=== PATIENT | male | born 1960 | race Caucasian/White ===

== ENCOUNTER 2021-03-17 19:18 | Inpatient (IN) | payer OTHER, MEDICARE ==
[2021-03-17] VITALS (7 sets, daily range): BP systolic 136–167; BP diastolic 82–98
[~2021-03-17] VITALS: Ht 180.3 cm; Wt 96.6 kg
[~2021-03-17 19:18] MED LIST: ALBU8.5H7 IH; GABA600T7 PO; HYDR12.58 PO; INSU100V8 SQ; LOSA50TA14 PO; Levofloxacin PO; METF10007 PO; PANT40TA6 PO; ROPI0.5T4 PO; SERT25TA PO; SITA50TA PO
--- NOTE | 2021-03-17 19:18 | NUR ---
Patient arrived to ED via ems with chief complaint of difficulty breathing x 1 week. Patient is a&o x3, no acute distress noted. Patient received DuoNeb treatment, solumedrol 125mg and 200cc of NS during EMS transport. Patient verbalized history of Asthma, COPD, allergic to mold. 18 g peripheral IV to left AC running NS started by EMS. NC at 4 liters. Patient connected to radiation monitor. Will continue to monitor patient.
[2021-03-17 19:37] LABS: BASOPHIL # 0.1 10^3/uL (0.0-0.1); BASOPHIL % 1.2 % (0.0-0.2); EOSINOPHIL # 0.9 10^3/uL (0.0-0.2); EOSINOPHIL % 12.3 % (0.0-5.0); LYMPHOCYTES % 30.8 % (24.0-44.0); MEAN CORP HGB 29.8 pg (26-34); MONOCYTES # 0.6 10^3/uL (0.3-0.8); MONOCYTES % 8.2 % (5.0-12.0); NEUTROPHIL # 3.5 10^3/uL (1.8-7.7); NEUTROPHILS % 47.4 % (41.0-85.0); PLATELET COUNT 228 10^3/uL (150-400); RED CELL DISTRIBUTION WIDTH 14.8 % (11.5-14.5)
--- NOTE | 2021-03-17 19:38 | ER.PDOC ---
General Chief Complaint: Requesting Medical Care Stated Complaint: DIFFICULTY BREATHING Time seen by MD: 19:36 Source: patient Exam Limitations: no limitations History of Present Illness Initial Comments Difficulty breathing for 1 week. Patient called EMS who gave him a breathing treatment of Xopenex and albuterol. He also has Solu-Medrol 110 times grams IV. Timing/Duration: 1 week Severity: moderate Prior Episodes/Possible Cause: occasional episodes, chronic episodes Modifying Factors: improves with albuterol nebulizer Associated Symptoms: cough Prior symptoms/Treatment: Similar symptoms previous, Recenly Seen, Treated by Doctor, Recently Hospitalized Allergies: Coded Allergies: No Known Allergies (Unverified , 06/02/20) Home Meds Active Scripts [Levofloxacin] 500 MG TABLET No Conflict Check, 500 MG PO DAILY for 5 Days, #5 Prov:BRUNA MACEDO MD 06/06/20 Reported Medications Albuterol Sulfate (PROAIR HFA) 8.5 Gm Hfa.aer.ad, 8.5 GM IH daily , INHALATION 06/01/20 Insulin Glargine,Hum.rec.anlog (LANTUS) 100 Unit/1 Ml Vial, 10 UNIT SQ HS, VIAL 06/01/20 Sertraline Hcl (ZOLOFT) 25 Mg Tablet, 1 TAB PO DAILY, #30 TAB 2 Refills 06/01/20 Hydrochlorothiazide (HYDROCHLOROTHIAZIDE) 12.5 Mg Tablet, 1 TAB PO DAILY, #30 TAB 5 Refills 06/01/20 Sitagliptin Phosphate (JANUVIA) 50 Mg Tablet, 100 MG PO Daily 06/01/20 Pantoprazole Sodium (PANTOPRAZOLE SODIUM) 40 Mg Tablet.dr, 1 TAB PO DAILY, #30 TAB 3 Refills 06/01/20 Gabapentin (GABAPENTIN) 600 Mg Tablet, 1 TAB PO TID, #90 TAB 3 Refills 06/01/20 Ropinirole Hcl (ROPINIROLE HCL) 0.5 Mg Tablet, 0.5 MG PO HS, TAB 06/01/20 Losartan Potassium (LOSARTAN POTASSIUM) 50 Mg Tablet, 1 TAB PO DAILY, #30 TAB 5 Refills 06/01/20 Metformin Hcl (METFORMIN HCL) 1,000 Mg Tablet, 1000 MG PO BID 06/01/20 Past Medical History Medical History: asthma, COPD, diabetes, hypertension Family History Significant Family History: no pertinent family hx Social History Alcohol Use: none Drug Use: none Review of Systems Constitutional: no symptoms reported EENTM: no symptoms reported Respiratory: see HPI Cardiovascular: no symptoms reported Gastrointestinal: no symptoms reported Genitourinary: no symptoms reported All Other Systems: Reviewed and Negative Physical Exam General Appearance: No Apparent Distress, WD/WN Neck: Non-Tender, Full Range of Motion, Supple, Normal Inspection Respiratory: chest non-tender, no respiratory distress, no accessory muscle use, wheezing Cardiovascular: Normal Peripheral Pulses, Regular Rate, Rhythm, No Edema, No Gallop, No JVD, No Murmur Gastrointestinal: Normal Bowel Sounds, No Organomegaly, No Pulsatile Mass, Non Tender, Soft Extremities: Normal Range of Motion, Non-Tender, Normal Inspection, No Pedal Edema, No Calf Tenderness, Normal Capillary Refill 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 (03/17/21 19:30) Ekg-Routine (03/17/21 19:30) Xr Chest 1v (03/17/21 19:30) Covid19 Antigen Meghan Yadira (03/17/21 19:30) Vital Signs Date Time Temp Pulse Resp B/P (MAP) Pulse Ox O2 Delivery O2 Flow Rate FiO2 03/17/21 19:45 97.8 69 19 144/98 (113) 89 Room Air 03/17/21 19:18 97.4 73 19 97 03/17/21 19:18 97.4 73 19 167/88 (114) 97 Nasal Canula 03/17/21 19:18 97.4 73 19 Laboratory Tests Test 03/17/21 19:21 03/17/21 19:40 White Blood Count 7.5 10^3/uL (4.5-11.0) Red Blood Count 5.40 10^6/uL (4.50-5.90) Hemoglobin 16.1 g/dL (13.9-16.3) Hematocrit 47.7 % (37.0-53.0) Mean Corpuscular Volume 88.3 fL (78-100) Mean Corpuscular Hemoglobin 29.8 pg (26-34) Mean Corpuscular Hemoglobin Concent 33.8 g/dL (33-36.5) Red Cell Distribution Width 14.8 % (11.5-14.5) H Platelet Count 228 10^3/uL (150-400) Mean Platelet Volume 11.7 fL (7.8-11.0) H Neutrophils (%) (Auto) 47.4 % (41.0-85.0) Lymphocytes (%) (Auto) 30.8 % (24.0-44.0) Monocytes (%) (Auto) 8.2 % (5.0-12.0) Neutrophils # (Auto) 3.5 10^3/uL (1.8-7.7) Lymphocytes # (Auto) 2.30 10^3/uL1 (1.0-4.8) Monocytes # (Auto) 0.6 10^3/uL (0.3-0.8) Absolute Immature Granulocyte (auto 0.01 10^3 u/L (0-2) Absolute Eosinophils (auto) 0.9 10^3/uL (0.0-0.2) H Immature Granulocytes % 0.10 % (0.00-0.50) Eosinophils % 12.3 % (0.0-5.0) H Basophils % 1.2 % (0.0-0.2) H Basophils # 0.1 10^3/uL (0.0-0.1) Prothrombin Time 11.9 SEC (9.6-12.0) Prothrombin Time INR (Non-Therap) 1.1 Activated Partial Thromboplast Time 21.2 SEC (24.67-30.72) D-Dimer 0.36 mg/L (0.19-0.49) Sodium Level 141 mmol/L (132-145) Potassium Level 4.2 mmol/L (3.6-5.2) Chloride Level 107.0 mmol/L (96-109) Carbon Dioxide Level 23.7 mmol/L (20.0-32) Anion Gap 14.5 Blood Urea Nitrogen 15 mg/dL (7-18) Creatinine 0.83 mg/dL (0.59-1.40) Estimated GFR () 114.0 (>/=60) Est GFR (CKD-EPI)(Non-Afr Surinamese) 94.2 (>/=60) BUN/Creatinine Ratio 18.0 Glucose Level 206 mg/dL (70-110) H Calcium Level 8.7 mg/dL (8.4-10.5) Total Bilirubin 1.9 mg/dL (0.2-1.0) H Aspartate Amino Transferase (AST) 12 U/L (0-35) Alanine Aminotransferase (ALT) 32 U/L (12-78) Alkaline Phosphatase 66 U/L (50-136) Total Creatine Kinase 139 U/L (39-308) Creatine Kinase MB 2.2 ng/mL (0.5-3.6) Troponin I < 0.02 ng/mL (0.00-0.05) Pro-B-Type Natriuretic Peptide 76 pg/mL (0-125) Total Protein 6.5 g/dL (6.4-8.2) Albumin 3.8 g/dL (3.4-5.0) Globulin 2.7 Albumin/Globulin Ratio 1.407 EKG/XRAY/CT/US EKG: NSR, no ST T wave changes EKG Comments: HR 71, normal P axis XRAY: chest (No active disease) ER DEPART Departure Time of Disposition: 20:49 Disposition: 01 HOME / SELF CARE / HOMELESS Impression: Primary Impression: Respiratory failure, acute Additional Impressions: COPD exacerbation Shortness of breath Condition: Stable Referrals: PCP,UNKNOWN (PCP) PRIMARY CARE PROVIDER Comments Admitted to Dr. Calloway Duration or Time Spent with Pa: 60 min Critical Care Note Total Time (mins): 60 Problem Qualifiers Primary Impression: Respiratory failure, acute Respiratory failure complication: hypoxia Qualified Codes: J96.01 - Acute respiratory failure with hypoxia ELI DELCID MD Mar 17, 2021 19:37
--- NOTE | 2021-03-17 19:51 | DIREP ---
PROCEDURE:CHEST 1 VIEW COMPARISON:[facility], CR, XRAY CHEST SINGLE VW, 05/31/2020, 11:06 PM. INDICATIONS:Dyspnea FINDINGS: LUNGS/PLEURA:No significant pulmonary parenchymal abnormalities or pleural effusion. CARDIAC:Normal cardiac silhouette and normal pulmonary vascularity. Aortic arch calcifications. MEDIASTINUM:Normal. BONES:Normal. OTHER:No additional findings. CONCLUSION:No acute cardiopulmonary process or significant change. Dictated by: Dai Mitchell MD on 03/17/2021 at 07:49 PM
--- NOTE | 2021-03-17 19:52 | PCM.EKG ---
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
[2021-03-17 20:13] LABS: CARBON DIOXIDE 23.7 mmol/L (20.0-32); GLUCOSE 206 mg/dL (70-110)
[2021-03-17 20:14] LABS: ALANINE AMINOTRANSFERASE(ML) 32 U/L (12-78); ALKALINE PHOSPHATASE 66 U/L (50-136); ASPARTATE AMINO TRANSFERASE 12 U/L (0-35); CALCIUM 8.7 mg/dL (8.4-10.5)
--- NOTE | 2021-03-17 20:15 | NUR ---
Patient placed on NC at 2 liters at this time, followed verbal order by Dr. Clifton. Oxygen at 93% with NC at 2 liters
--- NOTE | 2021-03-17 20:18 | NUR ---
BP 152/[address] Clifton, aware no orders recieved
[2021-03-17] MEDS ORDERED: ZITHROMAX 500 MG in NS 250ML 250 ML IV STA (20:28)
[2021-03-17 20:55] LABS: ABG PCO2 32.6 mmHg (35.0-45.0); ABG PH 7.436 (7.350-7.450); BE(B) -1.7 mmol/L (-2.0-2.0); HCO3act 21.4 mmol/L (22.0-26.0); pO2 55.4 mmHg (80.0-100.0)
[2021-03-17] MEDS ORDERED: DUO 0.5-3(2.5) MG/3 ML IH SCH (21:00)
[2021-03-17] MEDS ORDERED: DUO 0.5-3(2.5) MG/3 ML IH ONE (21:11)
[2021-03-17] MEDS ORDERED: SOLU-MEDROL ONE (21:17)
[2021-03-17] MEDS ORDERED: NS 250ML 250 ML ONE (21:18)
--- NOTE | 2021-03-17 21:51 | PCM.HP ---
History of Present Illness Reason for Visit: Shortness of breath History of Present Illness 60-year-old male with history of COPD, hypertension, diabetes, anxiety disorder presented emergency room with worsening shortness of breath for the last week. Condition got worse today. Patient was in severe respiratory distress. Was given breathing treatments, IV Solu-Medrol and placed on oxygen. Patient is being in the hospital for further management. Denies fever chills chest pain. Past Medical History Cardiac: HTN Psychiatric: Anxiety Endocrine: Diabetes Past Social History Smoke: Quit Alcohol: none Review of Systems Constitutional: No: Fever, Chills Eyes: No: Pain, Vision change ENT: No: Ear pain, Ear discharge Respiratory: Cough, Dry Cardiovascular: No: Chest Pain Gastrointestinal: No: Nausea Genitourinary: No Dysuria, No Frequency Musculoskeletal: No: neck pain, shoulder pain Skin: No: Rash, Jaundice Neurological: No: Weakness, Incoordination Allergies: Uncoded Allergies: MOLD, EFFEXOR (Allergy, Unknown, 03/18/21) Scheduled Albuterol Sulfate (Proair Hfa), 8.5 GM IH daily , (Reported) Gabapentin (Gabapentin), 1 TAB PO TID, (Reported) Hydrochlorothiazide (Hydrochlorothiazide), 1 TAB PO DAILY, (Reported) Insulin Glargine,Hum.rec.anlog (Lantus), 10 UNIT SQ HS, (Reported) Losartan Potassium (Losartan Potassium), 1 TAB PO DAILY, (Reported) Metformin Hcl (Metformin Hcl), 1,000 MG PO BID, (Reported) Pantoprazole Sodium (Pantoprazole Sodium), 1 TAB PO DAILY, (Reported) Ropinirole Hcl (Ropinirole Hcl), 0.5 MG PO HS, (Reported) Sertraline Hcl (Zoloft), 1 TAB PO DAILY, (Reported) Sitagliptin Phosphate (Januvia), 100 MG PO Daily, (Reported) [Levofloxacin], 500 MG PO DAILY VTE VTE Risk Total Score: 2 VTE Risk Score VTE Risk: Score 0-1 = Low Risk (Aggressive mobilization; early ambulation; no VTE prophylaxis required) Score 2: Moderate Risk (Intermittent/Pneumatic Compression Device OR Lovenox/Heparin/Coumadin) Score 3-4: High Risk (Intermittent/Pneumatic Compression Device AND Lovenox/Heparin/Coumadin) Score > or =5: Highest Risk (Intermittent/Pneumatic Compression Device AND Lovenox/Heparin/Coumadin) VTE VTE Present on Admission: No Currently receiving anticoagul: No VTE Risk Total Score: 2 Exam Vital Signs Vital Signs Date Time Temp Pulse Resp B/P (MAP) Pulse Ox O2 Delivery O2 Flow Rate FiO2 03/17/21 21:13 97.6 71 20 157/95 (115) 94 Nasal Canula 2.00 General Appearance: moderate distress HEENT: Atraumatic, PERRLA Respiratory: Other (Diffuse bilateral expiratory wheeze) Cardiovascular: Regular rate, Normal S1, Normal S2 Abdominal: Normal bowel sounds, No tenderness Extremities: No clubbing, No cyanosis Skin: No rash, No lesions Neuro: Normal tone, Sensation intact Psych/Mental Status: Other (Anxious) Assessment/Plan Assessment/Plan Problems: (1) COPD exacerbation Status: Acute ICD Code: J44.1 - Chronic obstructive pulmonary disease with (acute) exacerbation SNOMED: 224275365 (2) Hypertension ICD Code: I10 - Essential (primary) hypertension SNOMED: 10783020 (3) Diabetes mellitus, type II ICD Code: E11.9 - Type 2 diabetes mellitus without complications SNOMED: 67518559 (4) Anxiety disorder ICD Code: F41.9 - Anxiety disorder, unspecified SNOMED: 979391359 Plan 60-year-old male with history of COPD, hypertension, diabetes, anxiety disorder presented emergency room with worsening shortness of breath for the last week. Condition got worse today. Patient was in severe respiratory distress. Was given breathing treatments, IV Solu-Medrol and placed on oxygen. Patient is being in the hospital for further management. Denies fever chills chest pain. Plan Admit Oxygen to keep saturation more than 92% Bronchodilators scheduled and as needed IV steroids Empiric antibiotic Review and continue home meds SSI GI and DVT prophylaxis JOHN ROMERO MD Mar 17, 2021 21:51
[2021-03-17] MEDS ORDERED: SOLU-MEDROL IV SCH (22:00)
[2021-03-17] MEDS ORDERED: AMBIEN PO PRN (22:00)
[2021-03-17] MEDS ORDERED: VENTOLIN IH PRN (22:00)
[2021-03-17] MEDS: SOLU-MEDROL IV SCH (22:00)
[2021-03-17] MEDS ORDERED: TYLENOL PO PRN (22:00)
[2021-03-17] MEDS ORDERED: DEXTROSE 50%-WATER SYRINGE IV PRN (22:00)
[2021-03-17] MEDS ORDERED: D5W 1000ML 1,000 ML PRN (22:00)
[2021-03-17] MEDS ORDERED: ATROVENT IH PRN (22:00)
--- NOTE | 2021-03-17 22:00 | NUR ---
Call [facility] [place] to give report, a per RN they are not ready for patient. Call back later.
[2021-03-17] MEDS ORDERED: HUMALOG ONE (22:26)
[2021-03-17] MEDS: HUMALOG SQ SCH (22:30)
--- NOTE | 2021-03-17 22:30 | NUR ---
4 units of Humalog administered to patient's Left lower abdomen, subq. Dose verified with Katy DORSEY. Patient's glucose 209
--- NOTE | 2021-03-17 22:40 | NUR ---
As patient put on his sandal and stepped on the floor he complained that something poke the bottom of his right foot, I check didn't see anything. He looked at his sandle and found a tack. I assessed his right foot, notice he had a small punture wound right underneed his big toe, minimal dressing. Clean the wound and controlled the bleeding with gauze. As per patient his last tetanus shot was 5 years ago. Called @ [phone] spoke to Sue DORSEY to informed her of patient's wound. Sue DORSEY aware.
[2021-03-18 04:22] VITALS: BP 134/86
[2021-03-18] MEDS: SOLU-MEDROL IV SCH ×3 (06:18→21:18)
[2021-03-18 08:22] LABS: BASOPHIL % 0.2 % (0.0-0.2); LYMPHOCYTES # 1.07 10^3/uL1 (1.0-4.8); LYMPHOCYTES % 11.9 % (24.0-44.0); MEAN CORP HGB 30.3 pg (26-34); MONOCYTES # 0.3 10^3/uL (0.3-0.8); MONOCYTES % 3.6 % (5.0-12.0); NEUTROPHIL # 7.6 10^3/uL (1.8-7.7); NEUTROPHILS % 84.3 % (41.0-85.0); PLATELET COUNT 207 10^3/uL (150-400); RED CELL DISTRIBUTION WIDTH 13.2 % (11.5-14.5)
[2021-03-18 08:31] VITALS: BP 138/90
[2021-03-18] MEDS: ZOLOFT PO SCH (08:32)
[2021-03-18] MEDS: LEVAQUIN PO SCH (08:32)
[2021-03-18] MEDS: PROTONIX PO SCH (08:32)
[2021-03-18] MEDS: NEURONTIN PO SCH ×3 (08:32→21:18)
[2021-03-18] MEDS: COZAAR PO SCH (08:32)
[2021-03-18 08:33] LABS: CALCIUM 9.1 mg/dL (8.4-10.5); CARBON DIOXIDE 21.4 mmol/L (20.0-32)
[2021-03-18] MEDS: DUO 0.5-3(2.5) MG/3 ML IH PRN (09:30)
--- NOTE | 2021-03-18 11:01 | PRM.PN ---
Subjective Subjective Date: Mar 18, 2021 Time: 09:00 Subjective Some improvement, but still wheezing and short of breath. Review of Systems Constitutional: No: Fever, Chills Eyes: No: Pain, Vision change ENT: No: Ear pain, Ear discharge Respiratory: Cough, Dry Cardiovascular: No: Chest Pain Gastrointestinal: No: Nausea Genitourinary: No Dysuria, No Frequency Musculoskeletal: No: neck pain, shoulder pain Skin: No: Rash, Jaundice Neurological: No: Weakness, Incoordination Allergies: Uncoded Allergies: MOLD, EFFEXOR (Allergy, Unknown, 03/18/21) Scheduled Albuterol Sulfate (Proair Hfa), 8.5 GM IH daily , (Reported) Gabapentin (Gabapentin), 1 TAB PO TID, (Reported) Hydrochlorothiazide (Hydrochlorothiazide), 1 TAB PO DAILY, (Reported) Insulin Glargine,Hum.rec.anlog (Lantus), 10 UNIT SQ HS, (Reported) Losartan Potassium (Losartan Potassium), 1 TAB PO DAILY, (Reported) Metformin Hcl (Metformin Hcl), 1,000 MG PO BID, (Reported) Pantoprazole Sodium (Pantoprazole Sodium), 1 TAB PO DAILY, (Reported) Ropinirole Hcl (Ropinirole Hcl), 0.5 MG PO HS, (Reported) Sertraline Hcl (Zoloft), 1 TAB PO DAILY, (Reported) Sitagliptin Phosphate (Januvia), 100 MG PO Daily, (Reported) [Levofloxacin], 500 MG PO DAILY Objective Vitals and I/O Vital Sign - Last 24 Hours 03/17/21 03/17/21 03/17/21 03/17/21 19:18 19:18 19:18 19:45 Temp 97.4 97.4 97.4 97.8 Pulse 73 73 73 69 Resp 19 19 19 19 B/P (MAP) 167/88 (114) 144/98 (113) Pulse Ox 97 97 89 O2 Delivery Nasal Canula Room Air 03/17/21 03/17/21 03/17/21 03/17/21 21:13 21:15 21:15 22:01 Temp 97.6 Pulse 71 72 70 77 Resp 20 20 20 18 B/P (MAP) 157/95 (115) 136/88 (104) Pulse Ox 94 94 91 96 O2 Delivery Nasal Canula Nasal Canula O2 Flow Rate 2.00 2.00 03/17/21 03/17/21 03/17/21 03/17/21 22:32 22:33 23:02 23:06 Temp 98.5 98.4 Pulse 87 87 86 Resp 19 19 18 B/P (MAP) 139/82 (101) 139/82 (101) 145/93 (110) Pulse Ox 92 92 90 O2 Delivery Nasal Canula Nasal Canula Nasal Cannula O2 Flow Rate 2.00 2.00 2.00 03/17/21 03/17/21 03/18/21 03/18/21 23:25 23:45 04:22 08:31 Temp 97.7 97.9 Pulse 77 85 77 Resp 20 20 20 B/P (MAP) 134/86 (102) 138/90 (106) Pulse Ox 92 90 91 O2 Delivery Nasal Cannula Nasal Cannula Room Air O2 Flow Rate 2.00 2.00 FiO2 28 03/18/21 08:32 B/P (MAP) 138/90 General: moderate distress HEENT: Atraumatic, PERRLA Lungs: Other (Diffuse bilateral expiratory wheeze) Heart: Regular rate, Normal S1, Normal S2 Abdomen: Normal bowel sounds, No tenderness Extremities: No clubbing, No cyanosis Neuro: Normal tone, Sensation intact Psych/Mental Status: Other (Anxious) All Results(Lab/Rad) Laboratory Tests Test 03/17/21 19:21 03/17/21 19:40 03/17/21 19:58 03/17/21 20:05 White Blood Count 7.5 10^3/uL Red Blood Count 5.40 10^6/uL Hemoglobin 16.1 g/dL Hematocrit 47.7 % Mean Corpuscular Volume 88.3 fL Mean Corpuscular Hemoglobin 29.8 pg Mean Corpuscular Hemoglobin Concent 33.8 g/dL Red Cell Distribution Width 14.8 % Platelet Count 228 10^3/uL Mean Platelet Volume 11.7 fL Neutrophils (%) (Auto) 47.4 % Lymphocytes (%) (Auto) 30.8 % Monocytes (%) (Auto) 8.2 % Neutrophils # (Auto) 3.5 10^3/uL Lymphocytes # (Auto) 2.30 10^3/uL1 Monocytes # (Auto) 0.6 10^3/uL Absolute Immature Granulocyte (auto 0.01 10^3 u/L Absolute Eosinophils (auto) 0.9 10^3/uL Immature Granulocytes % 0.10 % Eosinophils % 12.3 % Basophils % 1.2 % Basophils # 0.1 10^3/uL Prothrombin Time 11.9 SEC Prothrombin Time INR (Non-Therap) 1.1 Activated Partial Thromboplast Time 21.2 SEC D-Dimer 0.36 mg/L Sodium Level 141 mmol/L Potassium Level 4.2 mmol/L Chloride Level 107.0 mmol/L Carbon Dioxide Level 23.7 mmol/L Anion Gap 14.5 Blood Urea Nitrogen 15 mg/dL Creatinine 0.83 mg/dL Estimated GFR () 114.0 Est GFR (CKD-EPI)(Non-Afr Faroese) 94.2 BUN/Creatinine Ratio 18.0 Glucose Level 206 mg/dL Calcium Level 8.7 mg/dL Total Bilirubin 1.9 mg/dL Aspartate Amino Transf (AST/SGOT) 12 U/L Alanine Aminotransferase (ALT/SGPT) 32 U/L Alkaline Phosphatase 66 U/L Total Creatine Kinase 139 U/L Creatine Kinase MB 2.2 ng/mL Troponin I < 0.02 ng/mL Pro-B-Type Natriuretic Peptide 76 pg/mL Total Protein 6.5 g/dL Albumin 3.8 g/dL Globulin 2.7 Albumin/Globulin Ratio 1.407 Blood Gas Sample Site Pending Blood Gas pH 7.436 Blood Gas PCO2 32.6 mmHg Blood Gas PO2 55.4 mmHg Blood Gas HCO3 21.4 mmol/L Blood Gas Base Excess -1.7 mmol/L Crow Test POSITIVE Arterial Blood Oxygen Saturation 89.4 % Deoxyhemoglobin 10.5 % Carboxyhemoglobin 0.3 % Methemoglobin 0.2 % Total Hemoglobin 16.2 % Total Oxygen Concentration 20.2 % Blood Gas Temperature 37 Oxygen Delivery Method (LAB) ROOM AIR FiO2 Pending Total Carbon Dioxide 22.4 mmol/L SARS-CoV-2 Antigen (Rapid) NEGATIVE Test 03/17/21 22:10 03/17/21 22:59 03/18/21 07:50 03/18/21 08:50 Bedside Glucose 209 273 188 White Blood Count 9.0 10^3/uL Red Blood Count 5.22 10^6/uL Hemoglobin 15.8 g/dL Hematocrit 45.7 % Mean Corpuscular Volume 87.5 fL Mean Corpuscular Hemoglobin 30.3 pg Mean Corpuscular Hemoglobin Concent 34.6 g/dL Red Cell Distribution Width 13.2 % Platelet Count 207 10^3/uL Mean Platelet Volume 10.4 fL Neutrophils (%) (Auto) 84.3 % Lymphocytes (%) (Auto) 11.9 % Monocytes (%) (Auto) 3.6 % Neutrophils # (Auto) 7.6 10^3/uL Lymphocytes # (Auto) 1.07 10^3/uL1 Monocytes # (Auto) 0.3 10^3/uL Absolute Immature Granulocyte (auto 0.03 10^3 u/L Absolute Eosinophils (auto) 0.0 10^3/uL Immature Granulocytes % 0.30 % Eosinophils % 0.0 % Basophils % 0.2 % Basophils # 0.0 10^3/uL Sodium Level 139 mmol/L Potassium Level 4.3 mmol/L Chloride Level 105.0 mmol/L Carbon Dioxide Level 21.4 mmol/L Anion Gap 16.9 Blood Urea Nitrogen 18 mg/dL Creatinine 0.86 mg/dL Estimated GFR () 109.4 Est GFR (CKD-EPI)(Non-Afr Faroese) 90.4 BUN/Creatinine Ratio 20.0 Glucose Level 226 mg/dL Calcium Level 9.1 mg/dL Total Bilirubin 1.9 mg/dL Aspartate Amino Transf (AST/SGOT) 11 U/L Alanine Aminotransferase (ALT/SGPT) 27 U/L Alkaline Phosphatase 68 U/L Total Protein 6.9 g/dL Albumin 3.9 g/dL Globulin 3.0 Albumin/Globulin Ratio 1.300 Current Medications Medications (Trade) Dose Ordered Sig/Ashley Route PRN Reason Start Time Stop Time Status Last Admin Dose Admin Azithromycin 500 mg/Sodium Chloride 250 ml @ 175 mls/hr STAT STAT IV 03/17/21 20:28 03/17/21 22:23 DC 03/17/21 21:25 Albuterol/ Ipratropium (Duo 0.5-3(2.5) Mg/3 ml) 3 ml RTQ4 IH 03/17/21 21:00 03/18/21 08:38 DC 03/17/21 21:00 Methylprednisolone Sodium Succinate (Solu-Medrol) 60 mg Q8HR IV 03/17/21 22:00 03/17/21 22:26 DC 03/17/21 21:30 Albuterol/ Ipratropium (Duo 0.5-3(2.5) Mg/3 ml) 3 ml STK-MED ONCE IH 03/17/21 21:11 03/17/21 21:12 DC Methylprednisolone Sodium Succinate (Solu-Medrol) 40 mg STK-MED ONCE .ROUTE 03/17/21 21:17 03/17/21 21:18 DC Sodium Chloride 250 ml @ ud STK-MED ONCE .ROUTE 03/17/21 21:18 03/17/21 21:18 DC Acetaminophen (Tylenol) 325 mg Q4H PRN PO PAIN 1 - 3 03/17/21 22:00 04/16/21 21:59 Pantoprazole Sodium (Protonix) 40 mg DAILY PO 03/18/21 09:00 04/17/21 08:59 03/18/21 08:32 Zolpidem Tartrate (Ambien) 5 mg HS PRN PO INSOMNIA 03/17/21 22:00 04/16/21 21:59 Albuterol Sulfate (Ventolin) 2.5 mg RTQ2 PRN IH SHORTNESS OF BREATH 03/17/21 22:00 03/18/21 08:37 DC Ipratropium [place] (Atrovent) 0.5 mg RTQ2 PRN IH SHORTNESS OF BREATH 03/17/21 22:00 03/18/21 08:37 DC Methylprednisolone Sodium Succinate (Solu-Medrol) 40 mg Q8HR IV 03/17/21 22:00 04/16/21 21:59 03/18/21 06:18 Levofloxacin (Levaquin) 500 mg DAILY PO 03/18/21 09:00 04/17/21 08:59 03/18/21 08:32 Gabapentin (Neurontin) 600 mg TID PO 03/18/21 09:00 04/17/21 08:59 03/18/21 08:32 Insulin Glargine (Lantus) 10 unit HS SQ 03/18/21 21:00 04/17/21 20:59 Losartan Potassium (Cozaar) 50 mg DAILY PO 03/18/21 09:00 04/17/21 08:59 03/18/21 08:32 Sertraline HCl (Zoloft) 25 mg DAILY PO 03/18/21 09:00 04/17/21 08:59 03/18/21 08:32 Ropinirole HCl (Requip) 0.5 mg HS PO 03/18/21 21:00 04/17/21 20:59 Insulin Human Lispro (Humalog) 0-140 0 Units 141-200... ACHS SQ 03/18/21 07:30 04/17/21 07:29 03/17/21 22:30 Dextrose 1,000 ml @ 100 mls/hr Q10H PRN IV hypoglycemia 03/17/21 22:00 04/16/21 21:59 Dextrose (Dextrose 50%-Water Syringe) 25 ml PRN PRN IV hypoglycemia 03/17/21 22:00 04/16/21 21:59 Insulin Human Lispro (Humalog) 1 unit STK-MED ONCE .ROUTE 03/17/21 22:26 03/17/21 22:27 DC Albuterol/ Ipratropium (Duo 0.5-3(2.5) Mg/3 ml) 0.5 ml RTQ2 PRN IH SHORTNESS OF BREATH 03/18/21 08:37 04/16/21 21:59 Assessment/Plan Assessment/Plan Assessment/Plan 60-year-old male with history of COPD, hypertension, diabetes, anxiety disorder presented emergency room with worsening shortness of breath for the last week. Condition got worse today. Patient was in severe respiratory distress. Was given breathing treatments, IV Solu-Medrol and placed on oxygen. Patient is being in the hospital for further management. Denies fever chills chest pain. Plan Admit Oxygen to keep saturation more than 92% Bronchodilators scheduled and as needed IV steroids Empiric antibiotic Review and continue home meds SSI GI and DVT prophylaxis Problems: (1) COPD exacerbation Status: Acute ICD Code: J44.1 - Chronic obstructive pulmonary disease with (acute) exacerbation SNOMED: 787994946 (2) Diabetes mellitus, type II ICD Code: E11.9 - Type 2 diabetes mellitus without complications SNOMED: 96905833 (3) Hypertension ICD Code: I10 - Essential (primary) hypertension SNOMED: 53553175 (4) Anxiety disorder ICD Code: F41.9 - Anxiety disorder, unspecified SNOMED: 383645022 Plan 60-year-old male with history of COPD, hypertension, diabetes, anxiety disorder presented emergency room with worsening shortness of breath for the last week. Condition got worse today. Patient was in severe respiratory distress. Was given breathing treatments, IV Solu-Medrol and placed on oxygen. Patient is being in the hospital for further management. Denies fever chills chest pain. Plan Continue bronchodilators scheduled and as needed Steroids SSI Empiric antibiotic GI and DVT prophylaxis Possible discharge in a.m. if patient stable and continues to improve. JOHN ROMERO MD Mar 18, 2021 11:01
[2021-03-18] MEDS: HUMALOG SQ SCH ×3 (12:37→21:58)
[2021-03-18] MEDS: LOVENOX SQ SCH (12:38)
[2021-03-18 15:15] VITALS: BP 129/79
--- NOTE | 2021-03-18 16:12 | NUR ---
UPDATE NOTIFIED DR ARNDTED BLOOD CULTURE GRAM POSITIVE COCCI.
[2021-03-18 19:55] VITALS: BP 147/97
[2021-03-18] MEDS ORDERED: NS 250ML 250 ML ONE (21:13)
[2021-03-18] MEDS ORDERED: VANCOMYCIN HCL 1 GM ONE (21:13)
[2021-03-18] MEDS ORDERED: NS 500ML 500 ML IV ONE (21:14)
[2021-03-18] MEDS: REQUIP PO SCH (21:18)
[2021-03-18] MEDS: VANCOMYCIN HCL 1 GM in NS 250ML 250 ML IV SCH (21:34)
[2021-03-18] MEDS: LANTUS SQ SCH (21:57)
[2021-03-18 23:44] VITALS: BP 144/106
[2021-03-19 03:45] VITALS: BP 127/84
[2021-03-19] MEDS: SOLU-MEDROL IV SCH ×3 (05:45→21:15)
[2021-03-19 07:25] VITALS: BP 115/77
[2021-03-19] MEDS: NEURONTIN PO SCH ×3 (08:00→21:15)
[2021-03-19] MEDS: LEVAQUIN PO SCH (08:00)
[2021-03-19] MEDS: ZOLOFT PO SCH (08:01)
[2021-03-19] MEDS: PROTONIX PO SCH (08:01)
[2021-03-19] MEDS: COZAAR PO SCH (08:01)
[2021-03-19] MEDS: HUMALOG SQ SCH ×4 (08:03→21:13)
[2021-03-19] MEDS: VANCOMYCIN HCL 1 GM in NS 250ML 250 ML IV SCH ×2 (08:48→21:16)
[2021-03-19] MEDS: DUO 0.5-3(2.5) MG/3 ML IH PRN ×4 (10:06→20:26)
--- NOTE | 2021-03-19 11:30 | PRM.PN ---
PROGRESS NOTE S/O/A/P DATE: 03/19/21 TIME: 11:15am SUBJECTIVE: Patient seen and examined at bedside. Chart was reviewed. Patient states that he's feeling "a little bit better" today with less SOB, cough, congestion, and wheezing. However, he continues to have severe anxiety and frequent "panic attacks" which exacerbate his respiratory status. Patient also reports worsening SOB and decreased O2 sats with minimal exertion. Furthermore, he is also complaining of some "kidney pain" and requests a UA. No fevers overnight. OBJECTIVE: PHYSICAL EXAMINATION: VITAL SIGNS: T 98.1, HR 79, RR 18, BP 115/77, O2 sat 95% RA GENERAL: Resting comfortably in NAD. No family or friends present at bedside. HEENT: NC/AT. PERRLA. EOMI. MMM. Neck is supple. LUNGS: Faint BL expiratory wheezes noted. No respiratory distress or cyanosis. HEART: Normal S1S2. RRR. No murmurs, rubs, gallops, or thrills. ABDOMEN: Soft. ND. NTTP. No rebound or guarding. Normal BS throughout. EXTREMITIES: No pitting edema. Weak, but moving all 4 extremities equally and completely off the bed. NEUROLOGIC: AAOx3. No motor or sensory deficits noted. Gait was not assessed at this time. LABORATORY DATA: No new labs today. FS 218 / 241 / 213. Bld Cx: Gram + Cocci. IMAGING STUDIES: No new studies today. ASSESSMENT / PLAN: 1) Acute on Chronic Hypoxemic Respiratory Failure (POA): Improving. Continue supportive care PRN. Pt wears 2L O2 NC intermittently at home. He did test negative for SARS-COV-2 while in the ED. Pt states that he has received the 1st Moderna vaccine shot, but is still due to receive the 2nd shot. 2) Acute COPD / Asthma Exacerbation: Pt states that he has been diagnosed with both COPD and Asthma. Will continue Br Tx's, O2 PRN, steroids, and Levaquin empirically. 3) ? Sepsis with Gram + Bacteremia: Bld Cx shows growth of Gram + Cocci. Will continue Vancomycin for now and follow up on the final Culture results. 4) ? UTI with "Kidney Pain": Will check a UA as requested. Pt is already on Levaquin. 5) Schizophrenia / Bipolar Disorder / Depression with Anxiety and Panic Attacks: Will continue home Sertraline and provide supportive care PRN. 6) DM-2: Will continue Lantus and Insulin Correction Scale PRN. 7) HTN: Will continue home Losartan and monitor closely. 8) GI and DVT prophylaxis: Will continue Protonix and Lovenox. GILMA EWBBER MD Mar 19, 2021 11:30
[2021-03-19 11:44] VITALS: BP 132/79
[2021-03-19] MEDS: LOVENOX SQ SCH (11:54)
[2021-03-19 16:19] VITALS: BP 129/11
[2021-03-19 18:27] LABS: UA COLOR YELLOW
[2021-03-19 18:28] LABS: BILIRUBIN,URINE NEGATIVE (NEGATIVE); UROBILINOGEN,URINE 0.2 E.U./dL (0.2)
[2021-03-19 19:40] VITALS: BP 139/100
[2021-03-19] MEDS: LANTUS SQ SCH (21:14)
[2021-03-19] MEDS: REQUIP PO SCH (21:15)
[2021-03-20 00:16] VITALS: BP 131/95
[2021-03-20] MEDS: DUO 0.5-3(2.5) MG/3 ML IH PRN (01:34)
[2021-03-20 05:08] VITALS: BP 134/98
[2021-03-20 05:20] LABS: BASOPHIL % 0.1 % (0.0-0.2); LYMPHOCYTES # 0.95 10^3/uL1 (1.0-4.8); LYMPHOCYTES % 9.5 % (24.0-44.0); MEAN CORP HGB 30.8 pg (26-34); MONOCYTES # 0.6 10^3/uL (0.3-0.8); MONOCYTES % 5.6 % (5.0-12.0); NEUTROPHIL # 8.5 10^3/uL (1.8-7.7); NEUTROPHILS % 84.8 % (41.0-85.0); PLATELET COUNT 199 10^3/uL (150-400); RED CELL DISTRIBUTION WIDTH 13.3 % (11.5-14.5)
[2021-03-20] MEDS: SOLU-MEDROL IV SCH ×2 (05:31→14:44)
[2021-03-20 05:34] LABS: ALANINE AMINOTRANSFERASE(ML) 22 U/L (12-78); ALKALINE PHOSPHATASE 59 U/L (50-136); ASPARTATE AMINO TRANSFERASE 10 U/L (0-35); CALCIUM 8.7 mg/dL (8.4-10.5); CARBON DIOXIDE 23.9 mmol/L (20.0-32); GLUCOSE 281 mg/dL (70-110)
[2021-03-20 08:00] VITALS: BP 121/86
[2021-03-20] MEDS: HUMALOG SQ SCH ×2 (08:20→12:10)
[2021-03-20] MEDS: VANCOMYCIN HCL 1 GM in NS 250ML 250 ML IV SCH ×2 (08:26→09:45)
[2021-03-20] MEDS: ZOLOFT PO SCH (08:26)
[2021-03-20] MEDS: LEVAQUIN PO SCH (08:26)
[2021-03-20] MEDS: NEURONTIN PO SCH ×2 (08:27→14:44)
[2021-03-20] MEDS: COZAAR PO SCH (08:27)
[2021-03-20] MEDS: PROTONIX PO SCH (08:27)
--- NOTE | 2021-03-20 11:05 | NUR ---
OXYGEN CHALLENGE RESTING 02 SAT ON ROOM AIR: 91% O2 SAT ON ROOM AIR WHILE AMBULATIN%-92% (AMBULATED 150 FT) PATIENT RESTING AGAIN O2 SAT ON ROOM AIR: 92%
[2021-03-20 11:24] VITALS: BP 131/93
--- NOTE | 2021-03-20 11:25 | NUR ---
DISCHARGE PLANNING: CM/SS VISITED WITH PT REGARDING DISCHARGE PLAN AND NEED. PT LIVES HOME WITH SPOUSE IN [place]. PT HAS WALKER WITH WHEELS AND SEAT, CANE, NEBULIZER, AND CPAP IN PLACE AT HOME. PT STATED HIS HAD [facility] IN PLACE AT HOME AND PT WOULD LIKE TO SET THEM UP FOR HIM WELL. CHOICE LETTER PRESENTED AND SIGNED FOR [facility]. William WHARTON NOTIFIED OF REFERRAL AND CLINICAL FAXED OVER. GOAL IS FOR PT TO RETURN HOME WITH TO ROUTINE SELF CARE AND [facility] TO FOLLOW. NO FURTHER CM/SS NEEDS NOTED OR IDENTIFIED AT THIS TIME.
[2021-03-20] MEDS: LOVENOX SQ SCH (12:11)
[2021-03-20] MEDS ORDERED: PRED10TA PO (12:27)
[2021-03-20] MEDS ORDERED: MOME220A9 IH (12:29)
--- NOTE | 2021-03-20 12:34 | PRM.DC ---
Subjective Subjective Date of Discharge: Mar 20, 2021 Time of Request to Discharge: 12:08 Subjective 60-year-old male with previous history of COPD hypertension diabetes mellitusAnxiety disorder presented to the ER with worsening shortness of breath and hypoxemia patient was admitted with COPD exacerbation with acute hypoxic respiratory failure started on DuoNeb and IV Solu-Medrol her symptoms improved and patient was off oxygen at rest and with exertion and he is back to his baseline medical status wanted to go home Objective: Patient is awake alert oriented no acute distress HEENT pupil react light mucous membrane moist neck supple, vital stable No JVD no carotid bruit Lungs prolonged expiration no wheezes heard clear to auscultation Heart S1-S2 heard distant heart sound no murmur gallop noted Abdomen, soft nontender bowel sounds present Extremities, no calf tenderness no swelling Labs blood culture 1 out of 2 Gram stain showed gram-positive cocci no growth thus far if negative we will consider discharging patient current medications that include completion of 5 days of Levaquin tapering dose of prednisone and additional medication Pulmicort aerosol treatment twice daily Patient was advised to follow-up with primary care physician in 1 to 2 weeks time and as needed Events Since Last Encounter Patient COPD exacerbation and acute hypoxic respiratory failure has resolved patient will be discharged home if blood culture is negative or deemed to be contaminant patient was advised to follow-up with PCP in 1 week time and as needed and to follow-up on the culture results with PCP in 48 to 72 hours and he was advised to return to the ER if develop any worsening symptoms including fever chills rigors or shortness of breath . 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: Alert awake oriented no acute distress nonfocal exam Laboratory Tests Test 03/17/21 19:21 03/17/21 19:40 03/17/21 19:58 03/17/21 20:05 White Blood Count 7.5 10^3/uL (4.5-11.0) Red Blood Count 5.40 10^6/uL (4.50-5.90) Hemoglobin 16.1 g/dL (13.9-16.3) Hematocrit 47.7 % (37.0-53.0) Mean Corpuscular Volume 88.3 fL (78-100) Mean Corpuscular Hemoglobin 29.8 pg (26-34) Mean Corpuscular Hemoglobin Concent 33.8 g/dL (33-36.5) Red Cell Distribution Width 14.8 % (11.5-14.5) Platelet Count 228 10^3/uL (150-400) Mean Platelet Volume 11.7 fL (7.8-11.0) Neutrophils (%) (Auto) 47.4 % (41.0-85.0) Lymphocytes (%) (Auto) 30.8 % (24.0-44.0) Monocytes (%) (Auto) 8.2 % (5.0-12.0) Neutrophils # (Auto) 3.5 10^3/uL (1.8-7.7) Lymphocytes # (Auto) 2.30 10^3/uL1 (1.0-4.8) Monocytes # (Auto) 0.6 10^3/uL (0.3-0.8) Absolute Immature Granulocyte (auto 0.01 10^3 u/L (0-2) Absolute Eosinophils (auto) 0.9 10^3/uL (0.0-0.2) Immature Granulocytes % 0.10 % (0.00-0.50) Eosinophils % 12.3 % (0.0-5.0) Basophils % 1.2 % (0.0-0.2) Basophils # 0.1 10^3/uL (0.0-0.1) Prothrombin Time 11.9 SEC (9.6-12.0) Prothrombin Time INR (Non-Therap) 1.1 Activated Partial Thromboplast Time 21.2 SEC (24.67-30.72) D-Dimer 0.36 mg/L (0.19-0.49) Sodium Level 141 mmol/L (132-145) Potassium Level 4.2 mmol/L (3.6-5.2) Chloride Level 107.0 mmol/L (96-109) Carbon Dioxide Level 23.7 mmol/L (20.0-32) Anion Gap 14.5 Blood Urea Nitrogen 15 mg/dL (7-18) Creatinine 0.83 mg/dL (0.59-1.40) Estimated GFR () 114.0 (>/=60) Est GFR (CKD-EPI)(Non-Afr Ivorian) 94.2 (>/=60) BUN/Creatinine Ratio 18.0 Glucose Level 206 mg/dL (70-110) Calcium Level 8.7 mg/dL (8.4-10.5) Total Bilirubin 1.9 mg/dL (0.2-1.0) Aspartate Amino Transf (AST/SGOT) 12 U/L (0-35) Alanine Aminotransferase (ALT/SGPT) 32 U/L (12-78) Alkaline Phosphatase 66 U/L (50-136) Total Creatine Kinase 139 U/L (39-308) Creatine Kinase MB 2.2 ng/mL (0.5-3.6) Troponin I < 0.02 ng/mL (0.00-0.05) Pro-B-Type Natriuretic Peptide 76 pg/mL (0-125) Total Protein 6.5 g/dL (6.4-8.2) Albumin 3.8 g/dL (3.4-5.0) Globulin 2.7 Albumin/Globulin Ratio 1.407 Blood Gas Sample Site RT RADIAL ARTERY Blood Gas pH 7.436 (7.350-7.450) Blood Gas PCO2 32.6 mmHg (35.0-45.0) Blood Gas PO2 55.4 mmHg (80.0-100.0) Blood Gas HCO3 21.4 mmol/L (22.0-26.0) Blood Gas Base Excess -1.7 mmol/L (-2.0-2.0) Crow Test POSITIVE Arterial Blood Oxygen Saturation 89.4 % (94.0-97.00) Deoxyhemoglobin 10.5 % (0.0-5.0) Carboxyhemoglobin 0.3 % (0.0-3.9) Methemoglobin 0.2 % (0.00-5.0) Total Hemoglobin 16.2 % (12.0-17.8) Total Oxygen Concentration 20.2 % (13.5-17.5) Blood Gas Temperature 37 Oxygen Delivery Method (LAB) ROOM AIR FiO2 20.8 % (20-101) Total Carbon Dioxide 22.4 mmol/L (23-27) SARS-CoV-2 Antigen (Rapid) NEGATIVE (NEGATIVE) Test 03/17/21 22:10 03/17/21 22:59 03/18/21 07:50 03/18/21 08:50 Bedside Glucose 209 (70 - 110) 273 (70 - 110) 188 (70 - 110) White Blood Count 9.0 10^3/uL (4.5-11.0) Red Blood Count 5.22 10^6/uL (4.50-5.90) Hemoglobin 15.8 g/dL (13.9-16.3) Hematocrit 45.7 % (37.0-53.0) Mean Corpuscular Volume 87.5 fL (78-100) Mean Corpuscular Hemoglobin 30.3 pg (26-34) Mean Corpuscular Hemoglobin Concent 34.6 g/dL (33-36.5) Red Cell Distribution Width 13.2 % (11.5-14.5) Platelet Count 207 10^3/uL (150-400) Mean Platelet Volume 10.4 fL (7.8-11.0) Neutrophils (%) (Auto) 84.3 % (41.0-85.0) Lymphocytes (%) (Auto) 11.9 % (24.0-44.0) Monocytes (%) (Auto) 3.6 % (5.0-12.0) Neutrophils # (Auto) 7.6 10^3/uL (1.8-7.7) Lymphocytes # (Auto) 1.07 10^3/uL1 (1.0-4.8) Monocytes # (Auto) 0.3 10^3/uL (0.3-0.8) Absolute Immature Granulocyte (auto 0.03 10^3 u/L (0-2) Absolute Eosinophils (auto) 0.0 10^3/uL (0.0-0.2) Immature Granulocytes % 0.30 % (0.00-0.50) Eosinophils % 0.0 % (0.0-5.0) Basophils % 0.2 % (0.0-0.2) Basophils # 0.0 10^3/uL (0.0-0.1) Sodium Level 139 mmol/L (132-145) Potassium Level 4.3 mmol/L (3.6-5.2) Chloride Level 105.0 mmol/L (96-109) Carbon Dioxide Level 21.4 mmol/L (20.0-32) Anion Gap 16.9 Blood Urea Nitrogen 18 mg/dL (7-18) Creatinine 0.86 mg/dL (0.59-1.40) Estimated GFR () 109.4 (>/=60) Est GFR (CKD-EPI)(Non-Afr Ivorian) 90.4 (>/=60) BUN/Creatinine Ratio 20.0 Glucose Level 226 mg/dL (70-110) Calcium Level 9.1 mg/dL (8.4-10.5) Total Bilirubin 1.9 mg/dL (0.2-1.0) Aspartate Amino Transf (AST/SGOT) 11 U/L (0-35) Alanine Aminotransferase (ALT/SGPT) 27 U/L (12-78) Alkaline Phosphatase 68 U/L (50-136) Total Protein 6.9 g/dL (6.4-8.2) Albumin 3.9 g/dL (3.4-5.0) Globulin 3.0 Albumin/Globulin Ratio 1.300 Test 03/18/21 12:35 03/18/21 17:17 03/18/21 21:13 03/19/21 06:14 Bedside Glucose 260 (70 - 110) 246 (70 - 110) 213 (70 - 110) 241 (70 - 110) Test 03/19/21 07:45 03/19/21 11:32 03/19/21 16:12 03/19/21 17:56 Bedside Glucose 218 (70 - 110) 297 (70 - 110) 277 (70 - 110) Urine Collection Type RANDOM Urine Color YELLOW Urine Appearance CLEAR Urine Bilirubin NEGATIVE (NEGATIVE) Urine Ketones TRACE (NEGATIVE) Urine Specific [place] 1.025 (1.005-1.030) Urine pH 5.0 (4.5-8.0) Urine Protein NEGATIVE (NEGATIVE) Urine Urobilinogen 0.2 E.U./dL (0.2) Urine Nitrate NEGATIVE (NEGATIVE) Urine Leukocyte Esterase NEGATIVE (NEGATIVE) Urine Glucose (Auto)(UA) 500 (NEGATIVE) Urine Blood NEGATIVE (NEGATIVE) Test 03/19/21 20:57 03/20/21 04:45 03/20/21 05:25 03/20/21 08:30 Bedside Glucose 329 (70 - 110) 258 (70 - 110) White Blood Count 10.1 10^3/uL (4.5-11.0) Red Blood Count 4.81 10^6/uL (4.50-5.90) Hemoglobin 14.8 g/dL (13.9-16.3) Hematocrit 42.6 % (37.0-53.0) Mean Corpuscular Volume 88.6 fL (78-100) Mean Corpuscular Hemoglobin 30.8 pg (26-34) Mean Corpuscular Hemoglobin Concent 34.7 g/dL (33-36.5) Red Cell Distribution Width 13.3 % (11.5-14.5) Platelet Count 199 10^3/uL (150-400) Mean Platelet Volume 10.7 fL (7.8-11.0) Neutrophils (%) (Auto) 84.8 % (41.0-85.0) Lymphocytes (%) (Auto) 9.5 % (24.0-44.0) Monocytes (%) (Auto) 5.6 % (5.0-12.0) Neutrophils # (Auto) 8.5 10^3/uL (1.8-7.7) Lymphocytes # (Auto) 0.95 10^3/uL1 (1.0-4.8) Monocytes # (Auto) 0.6 10^3/uL (0.3-0.8) Absolute Immature Granulocyte (auto 0.03 10^3 u/L (0-2) Absolute Eosinophils (auto) 0.0 10^3/uL (0.0-0.2) Immature Granulocytes % 0.30 % (0.00-0.50) Eosinophils % 0.0 % (0.0-5.0) Basophils % 0.1 % (0.0-0.2) Basophils # 0.0 10^3/uL (0.0-0.1) Sodium Level 137 mmol/L (132-145) Potassium Level 4.1 mmol/L (3.6-5.2) Chloride Level 102.0 mmol/L (96-109) Carbon Dioxide Level 23.9 mmol/L (20.0-32) Anion Gap 15.2 Blood Urea Nitrogen 19 mg/dL (7-18) Creatinine 0.88 mg/dL (0.59-1.40) Estimated GFR () 106.5 (>/=60) Est GFR (CKD-EPI)(Non-Afr Ivorian) 88.0 (>/=60) BUN/Creatinine Ratio 21.0 Glucose Level 281 mg/dL (70-110) Hemoglobin A1c 8.5 % (0-5.7) Calcium Level 8.7 mg/dL (8.4-10.5) Phosphorus Level 4.1 mg/dL (2.5-4.9) Magnesium Level 2.0 mg/dL (1.8-2.4) Total Bilirubin 1.5 mg/dL (0.2-1.0) Aspartate Amino Transf (AST/SGOT) 10 U/L (0-35) Alanine Aminotransferase (ALT/SGPT) 22 U/L (12-78) Alkaline Phosphatase 59 U/L (50-136) C-Reactive Protein < 0.05 mg/dL (0.00-5.00) Total Protein 6.7 g/dL (6.4-8.2) Albumin 3.9 g/dL (3.4-5.0) Globulin 2.8 Albumin/Globulin Ratio 1.392 Procalcitonin < 0.05 ng/mL (0.05-0.5) Vancomycin Level Trough 4.8 ug/mL (5.00-10.0) Test 03/20/21 11:56 Bedside Glucose 236 (70 - 110) General Appearance: Alert, Oriented X3, Cooperative, No acute distress HEENT: Atraumatic, PERRLA, EOMI, Mucous membr. moist/pink Respiratory: Clear to auscultation, Other (Prolonged expiration ) Cardiovascular: Regular rate, Normal S1, Normal S2, No murmurs Abdominal: Soft, No tenderness, No hepatospenomegaly Extremities: No clubbing, No cyanosis, No edema, No tenderness/swelling Neuro: Normal gait, Normal speech, Strength at 5/5 X4 ext Psych/Mental Status: Mental status NL, Mood NL VTE VTE Risk Total Score: 2 VTE Risk Score VTE Risk: Score 0-1 = Low Risk (Aggressive mobilization; early ambulation; no VTE prophylaxis required) Score 2: Moderate Risk (Intermittent/Pneumatic Compression Device OR Lovenox/Heparin/Coumadin) Score 3-4: High Risk (Intermittent/Pneumatic Compression Device AND Lovenox/Heparin/Coumadin) Score > or =5: Highest Risk (Intermittent/Pneumatic Compression Device AND Lovenox/Heparin/Coumadin) Objective Vitals and I/O Vital Sign - Last 24 Hours 03/19/21 03/19/21 03/19/21 03/19/21 14:08 14:08 16:19 17:13 Temp 97.9 Pulse 70 70 74 66 Resp 20 18 18 20 B/P (MAP) 129/11 (50) Pulse Ox 99 99 94 95 03/19/21 03/19/21 03/19/21 03/19/21 17:18 18:10 19:40 20:25 Temp 97.9 Pulse 66 66 79 73 Resp 20 20 18 16 B/P (MAP) 139/100 (113) Pulse Ox 95 95 93 94 O2 Delivery Room Air Room Air 03/19/21 03/19/21 03/20/21 03/20/21 20:33 22:07 00:16 01:34 Temp 97.9 Pulse 74 68 71 Resp 14 17 16 B/P (MAP) 131/95 (107) Pulse Ox 95 91 94 O2 Delivery Room Air 03/20/21 03/20/21 03/20/21 03/20/21 01:41 05:08 08:00 08:27 Temp 97.3 97.8 Pulse 68 70 69 Resp 16 18 20 B/P (MAP) 134/98 (110) 121/86 (98) 121/86 Pulse Ox 98 92 92 03/20/21 03/20/21 03/20/21 09:11 09:11 11:24 Temp 97.7 Pulse 74 74 71 Resp 18 18 20 B/P (MAP) 131/93 (106) Pulse Ox 91 91 90 O2 Delivery Room Air FiO2 21 Intake and Output 03/20/21 07:00 Intake Total 834 ml Balance 834 ml General: moderate distress HEENT: Atraumatic, PERRLA Lungs: Other (Diffuse bilateral expiratory wheeze) Heart: Regular rate, Normal S1, Normal S2 Abdomen: Normal bowel sounds, No tenderness Extremities: No clubbing, No cyanosis Neuro: Normal tone, Sensation intact Psych/Mental Status: Other (Anxious) All Results(Lab/Rad) Laboratory Tests Test 03/17/21 19:21 03/17/21 19:40 03/17/21 19:58 03/17/21 20:05 White Blood Count 7.5 10^3/uL Red Blood Count 5.40 10^6/uL Hemoglobin 16.1 g/dL Hematocrit 47.7 % Mean Corpuscular Volume 88.3 fL Mean Corpuscular Hemoglobin 29.8 pg Mean Corpuscular Hemoglobin Concent 33.8 g/dL Red Cell Distribution Width 14.8 % Platelet Count 228 10^3/uL Mean Platelet Volume 11.7 fL Neutrophils (%) (Auto) 47.4 % Lymphocytes (%) (Auto) 30.8 % Monocytes (%) (Auto) 8.2 % Neutrophils # (Auto) 3.5 10^3/uL Lymphocytes # (Auto) 2.30 10^3/uL1 Monocytes # (Auto) 0.6 10^3/uL Absolute Immature Granulocyte (auto 0.01 10^3 u/L Absolute Eosinophils (auto) 0.9 10^3/uL Immature Granulocytes % 0.10 % Eosinophils % 12.3 % Basophils % 1.2 % Basophils # 0.1 10^3/uL Prothrombin Time 11.9 SEC Prothrombin Time INR (Non-Therap) 1.1 Activated Partial Thromboplast Time 21.2 SEC D-Dimer 0.36 mg/L Sodium Level 141 mmol/L Potassium Level 4.2 mmol/L Chloride Level 107.0 mmol/L Carbon Dioxide Level 23.7 mmol/L Anion Gap 14.5 Blood Urea Nitrogen 15 mg/dL Creatinine 0.83 mg/dL Estimated GFR () 114.0 Est GFR (CKD-EPI)(Non-Afr Ivorian) 94.2 BUN/Creatinine Ratio 18.0 Glucose Level 206 mg/dL Calcium Level 8.7 mg/dL Total Bilirubin 1.9 mg/dL Aspartate Amino Transf (AST/SGOT) 12 U/L Alanine Aminotransferase (ALT/SGPT) 32 U/L Alkaline Phosphatase 66 U/L Total Creatine Kinase 139 U/L Creatine Kinase MB 2.2 ng/mL Troponin I < 0.02 ng/mL Pro-B-Type Natriuretic Peptide 76 pg/mL Total Protein 6.5 g/dL Albumin 3.8 g/dL Globulin 2.7 Albumin/Globulin Ratio 1.407 Blood Gas Sample Site Pending Blood Gas pH 7.436 Blood Gas PCO2 32.6 mmHg Blood Gas PO2 55.4 mmHg Blood Gas HCO3 21.4 mmol/L Blood Gas Base Excess -1.7 mmol/L Crow Test POSITIVE Arterial Blood Oxygen Saturation 89.4 % Deoxyhemoglobin 10.5 % Carboxyhemoglobin 0.3 % Methemoglobin 0.2 % Total Hemoglobin 16.2 % Total Oxygen Concentration 20.2 % Blood Gas Temperature 37 Oxygen Delivery Method (LAB) ROOM AIR FiO2 Pending Total Carbon Dioxide 22.4 mmol/L SARS-CoV-2 Antigen (Rapid) NEGATIVE Test 03/17/21 22:10 03/17/21 22:59 03/18/21 07:50 03/18/21 08:50 Bedside Glucose 209 273 188 White Blood Count 9.0 10^3/uL Red Blood Count 5.22 10^6/uL Hemoglobin 15.8 g/dL Hematocrit 45.7 % Mean Corpuscular Volume 87.5 fL Mean Corpuscular Hemoglobin 30.3 pg Mean Corpuscular Hemoglobin Concent 34.6 g/dL Red Cell Distribution Width 13.2 % Platelet Count 207 10^3/uL Mean Platelet Volume 10.4 fL Neutrophils (%) (Auto) 84.3 % Lymphocytes (%) (Auto) 11.9 % Monocytes (%) (Auto) 3.6 % Neutrophils # (Auto) 7.6 10^3/uL Lymphocytes # (Auto) 1.07 10^3/uL1 Monocytes # (Auto) 0.3 10^3/uL Absolute Immature Granulocyte (auto 0.03 10^3 u/L Absolute Eosinophils (auto) 0.0 10^3/uL Immature Granulocytes % 0.30 % Eosinophils % 0.0 % Basophils % 0.2 % Basophils # 0.0 10^3/uL Sodium Level 139 mmol/L Potassium Level 4.3 mmol/L Chloride Level 105.0 mmol/L Carbon Dioxide Level 21.4 mmol/L Anion Gap 16.9 Blood Urea Nitrogen 18 mg/dL Creatinine 0.86 mg/dL Estimated GFR () 109.4 Est GFR (CKD-EPI)(Non-Afr Ivorian) 90.4 BUN/Creatinine Ratio 20.0 Glucose Level 226 mg/dL Calcium Level 9.1 mg/dL Total Bilirubin 1.9 mg/dL Aspartate Amino Transf (AST/SGOT) 11 U/L Alanine Aminotransferase (ALT/SGPT) 27 U/L Alkaline Phosphatase 68 U/L Total Protein 6.9 g/dL Albumin 3.9 g/dL Globulin 3.0 Albumin/Globulin Ratio 1.300 Current Medications Medications (Trade) Dose Ordered Sig/Ashley Route PRN Reason Start Time Stop Time Status Last Admin Dose Admin Azithromycin 500 mg/Sodium Chloride 250 ml @ 175 mls/hr STAT STAT IV 03/17/21 20:28 03/17/21 22:23 DC 03/17/21 21:25 Albuterol/ Ipratropium (Duo 0.5-3(2.5) Mg/3 ml) 3 ml RTQ4 IH 03/17/21 21:00 03/18/21 08:38 DC 03/17/21 21:00 Methylprednisolone Sodium Succinate (Solu-Medrol) 60 mg Q8HR IV 03/17/21 22:00 03/17/21 22:26 DC 03/17/21 21:30 Albuterol/ Ipratropium (Duo 0.5-3(2.5) Mg/3 ml) 3 ml STK-MED ONCE IH 03/17/21 21:11 03/17/21 21:12 DC Methylprednisolone Sodium Succinate (Solu-Medrol) 40 mg STK-MED ONCE .ROUTE 03/17/21 21:17 03/17/21 21:18 DC Sodium Chloride 250 ml @ ud STK-MED ONCE .ROUTE 03/17/21 21:18 03/17/21 21:18 DC Acetaminophen (Tylenol) 325 mg Q4H PRN PO PAIN 1 - 3 03/17/21 22:00 04/16/21 21:59 Pantoprazole Sodium (Protonix) 40 mg DAILY PO 03/18/21 09:00 04/17/21 08:59 03/18/21 08:32 Zolpidem Tartrate (Ambien) 5 mg HS PRN PO INSOMNIA 03/17/21 22:00 04/16/21 21:59 Albuterol Sulfate (Ventolin) 2.5 mg RTQ2 PRN IH SHORTNESS OF BREATH 03/17/21 22:00 03/18/21 08:37 DC Ipratropium [place] (Atrovent) 0.5 mg RTQ2 PRN IH SHORTNESS OF BREATH 03/17/21 22:00 03/18/21 08:37 DC Methylprednisolone Sodium Succinate (Solu-Medrol) 40 mg Q8HR IV 03/17/21 22:00 04/16/21 21:59 03/18/21 06:18 Levofloxacin (Levaquin) 500 mg DAILY PO 03/18/21 09:00 04/17/21 08:59 03/18/21 08:32 Gabapentin (Neurontin) 600 mg TID PO 03/18/21 09:00 04/17/21 08:59 03/18/21 08:32 Insulin Glargine (Lantus) 10 unit HS SQ 03/18/21 21:00 04/17/21 20:59 Losartan Potassium (Cozaar) 50 mg DAILY PO 03/18/21 09:00 04/17/21 08:59 03/18/21 08:32 Sertraline HCl (Zoloft) 25 mg DAILY PO 03/18/21 09:00 04/17/21 08:59 03/18/21 08:32 Ropinirole HCl (Requip) 0.5 mg HS PO 03/18/21 21:00 04/17/21 20:59 Insulin Human Lispro (Humalog) 0-140 0 Units 141-200... ACHS SQ 03/18/21 07:30 04/17/21 07:29 03/17/21 22:30 Dextrose 1,000 ml @ 100 mls/hr Q10H PRN IV hypoglycemia 03/17/21 22:00 04/16/21 21:59 Dextrose (Dextrose 50%-Water Syringe) 25 ml PRN PRN IV hypoglycemia 03/17/21 22:00 04/16/21 21:59 Insulin Human Lispro (Humalog) 1 unit STK-MED ONCE .ROUTE 03/17/21 22:26 03/17/21 22:27 DC Albuterol/ Ipratropium (Duo 0.5-3(2.5) Mg/3 ml) 0.5 ml RTQ2 PRN IH SHORTNESS OF BREATH 03/18/21 08:37 04/16/21 21:59 Medication Reconciliation Scheduled Albuterol Sulfate (Proair Hfa), 8.5 GM IH daily , (Reported) Gabapentin (Gabapentin), 1 TAB PO TID, (Reported) Hydrochlorothiazide (Hydrochlorothiazide), 1 TAB PO DAILY, (Reported) Insulin Glargine,Hum.rec.anlog (Lantus), 10 UNIT SQ HS, (Reported) Losartan Potassium (Losartan Potassium), 1 TAB PO DAILY, (Reported) Metformin Hcl (Metformin Hcl), 1,000 MG PO BID, (Reported) Mometasone Furoate (Asmanex), 220 MCG IH BID Pantoprazole Sodium (Pantoprazole Sodium), 1 TAB PO DAILY, (Reported) Prednisone (Prednisone), 40 MG PO DAILY24 Ropinirole Hcl (Ropinirole Hcl), 0.5 MG PO HS, (Reported) Sertraline Hcl (Zoloft), 1 TAB PO DAILY, (Reported) Sitagliptin Phosphate (Januvia), 100 MG PO Daily, (Reported) [Levofloxacin], 500 MG PO DAILY Plan Assessment Assessment: Acute hypoxemic respiratory failure-resolved COPD exacerbation improving Diabetes mellitus type 2 Hypertension COPD Anxiety disorder Plan My Orders - ELIEZER BARNES MD Procedure Category Date Status Time Resuscitation Status CODE 03/20/21 Transmitted 09:17 Discharge DISCHARGE 03/20/21 Transmitted 11:59 Follow-up with PCP in 1 week time and as needed,Follow-up in the blood culture results with PCP in 48 hours Blood culture turned out to be Staphylococcus hominis this is a contaminant patient does not need any treatment For this , Patient is clinically stable and discharged home with the above-mentioned medication and advised to follow-up with PCP in 1 week time and as needed ELIEZER BARNES MD Mar 20, 2021 12:34
[2021-03-20 16:18] VITALS: BP 131/97
[2021-03-20 16:26] VITALS: BP 131/97
--- NOTE | 2021-03-20 16:26 | NUR ---
DISCHARGE PATIENT PROVIDED WITH DISCHARGE PACKET INCLUDING FOLLOW-UP APPT INSTRUCTIONS, EDUCATION, AND WHEN TO SEEK MEDICAL ATTENTION. PATIENT VERBALIZED UNDERSTANDING AND DENIES HAVING ANY QUESTIONS OR CONCERNS AT THIS TIME. IV DC'D WITH NO REDNESS OR SWELLING NOTED AT THIS TIME. PATIENT IS STABLE WITH NO SIGNS OF DISTRESS NOTED AT THIS TIME. PATIENT TAKEN TO HOSPITAL VAN DRIVEN BY [facility] VIA WHEELCHAIR BY SALEEM CARDONA. RELINQUISHED CARE OF PATIENT AT THIS TIME
== END 2021-03-20 16:35 | disposition home health service (06) | DRG 189 ==
LOC: ER 19:18 → OBSVTOIN 21:43 → UNDOADMOB 21:43 → MS 21:43 → EDBEDREQSVC 21:48 → EDBEDREQ 21:48
PROVIDERS: ADMIT Internal Medicine; ATTEND Internal Medicine
DX: J96.21 Acute and chronic respiratory failure with hypoxia (principal); J44.1 Chronic obstructive pulmonary disease with (acute) exacerbation; J45.901 Unspecified asthma with (acute) exacerbation; E11.9 Type 2 diabetes mellitus without complications; F20.9 Schizophrenia, unspecified; F31.9 Bipolar disorder, unspecified; F41.0 Panic disorder [episodic paroxysmal anxiety]; F41.8 Other specified anxiety disorders; I10 Essential (primary) hypertension; Z20.822 Contact with and (suspected) exposure to COVID-19; Z79.51 Long term (current) use of inhaled steroids; Z79.899 Other long term (current) drug therapy; Z79.2 Long term (current) use of antibiotics; Z79.4 Long term (current) use of insulin; Z87.891 Personal history of nicotine dependence; Z91.09 Other allergy status, other than to drugs and biological substances
CPT/HCPCS: 36415; 36600; 71045; 80053; 80202; 81003; 82550; 82553; 82803; 82948; 83036; 83735; 83880; 84100; 84145; 84484; 85025; 85379; 85610; 85730; 86140; 87040; 87086; 87186; 87426; 93005; 94640; 99291; G0378; J0456; J1650; J1815; J1956; J2920; J3370; J7040; J7050